=== PATIENT | female | born 1965 | race Asian ===

== ENCOUNTER → 2017-07-10 09:35 | Outpatient (CLI) | payer OTHER, SELFPAY ==
--- NOTE | 2017-07-10 | DI.RAD.S_ITS ---
PROCEDURE: XR LUMBAR SPINE 2-3V INDICATIONS: LUMBAR RADICUOPATHY TECHNIQUE: 3 views of the lumbar spine were acquired. COMPARISON: [facility], , -SPINE 2-3 VIEWS, 01/01/2011, 8:38. FINDINGS: Bones: 5 [id number] vertebrae are present. There is normal bony alignment. No vertebral body compression fractures. No suspicious bony lesions. Soft tissues: Overlying bowel gas pattern is normal. No suspicious soft tissue calcifications. IMPRESSION: No trauma found, source of radiculopathy is not seen. Minimal degenerative changes are seen along the mid and lower lumbosacral spine at the facet joints. Depending on clinical status followup by MR scanning may be warranted if disc herniation and focal nerve root impingement is clinically suspected. Dictated by: Angel Monteiro M.D. on 07/10/2017 at 11:18 Approved by: Angel Monteiro M.D. on 07/10/2017 at 11:19
== END ==
PROVIDERS: Family Provider Family Medicine; PCP Family Medicine; Visit Provider Family Medicine
DX: M54.16 Radiculopathy, lumbar region (principal); M51.37 Other intervertebral disc degeneration, lumbosacral region
CPT/HCPCS: 72100

== ENCOUNTER → 2017-08-21 08:49 | Outpatient (CLI) | payer OTHER, SELFPAY ==
--- NOTE | 2017-08-21 | DI.MG.S_ITS ---
BILATERAL DIGITAL SCREENING MAMMOGRAM 3D/2D WITH CAD: 08/21/2017 CLINICAL: Routine screening. Comparison is made to exams dated: 06/17/2016 mammogram, 06/15/2015 mammogram, and 05/17/2014 mammogram - [facility]. The tissue of both breasts is heterogeneously dense. This may lower the sensitivity of mammography. Current study was also evaluated with a Computer Aided Detection (CAD) system. No significant masses, calcifications, or other findings are seen in either breast. There has been no significant interval change. IMPRESSION: NEGATIVE There is no mammographic evidence of malignancy. A 1 year screening mammogram is recommended. This exam was interpreted at Station ID: [id number]. NOTE: For mammograms, a report in lay terms will be sent to the patient. Approximately 15% of breast malignancies will not be visualized mammographically. In the management of a palpable breast mass, a negative mammogram must not discourage biopsy of a clinically suspicious lesion. Electronically Signed By: Harrison miles/yasmin:08/21/2017 12:59:53 letter sent: Normal Exam ACR BI-RADS Category 1: Negative 3341F
== END ==
PROVIDERS: Family Provider Family Medicine; PCP Family Medicine; Visit Provider Family Medicine
DX: Z12.31 Encounter for screening mammogram for malignant neoplasm of breast (principal)
CPT/HCPCS: 77063; 77067

== ENCOUNTER → 2018-08-07 13:49 | Outpatient (CLI) | payer OTHER, SELFPAY ==
--- NOTE | 2018-08-07 | DI.MG.S_ITS ---
BILATERAL DIGITAL SCREENING MAMMOGRAM 3D/2D WITH CAD: 08/07/2018 CLINICAL: Routine screening. Comparison is made to exams dated: 08/21/2017 mammogram, 06/17/2016 mammogram, 06/15/2015 mammogram, 05/17/2014 mammogram, and 10/30/2012 mammogram - [facility]. The tissue of both breasts is heterogeneously dense. This may lower the sensitivity of mammography. Current study was also evaluated with a Computer Aided Detection (CAD) system. No significant masses, calcifications, or other findings are seen in either breast. There has been no significant interval change. IMPRESSION: NEGATIVE There is no mammographic evidence of malignancy. A 1 year screening mammogram is recommended. This exam was interpreted at Station ID: [id number]. NOTE: For mammograms, a report in lay terms will be sent to the patient. Approximately 15% of breast malignancies will not be visualized mammographically. In the management of a palpable breast mass, a negative mammogram must not discourage biopsy of a clinically suspicious lesion. Electronically Signed By: Castro rico/yasmin:08/07/2018 19:29:08 letter sent: Normal Exam ACR BI-RADS Category 1: Negative 3341F
== END ==
PROVIDERS: Family Provider Family Medicine; PCP Family Medicine; Visit Provider Family Medicine
DX: Z12.31 Encounter for screening mammogram for malignant neoplasm of breast (principal)
CPT/HCPCS: 77063; 77067

== ENCOUNTER → 2018-10-26 10:27 | Outpatient (CLI) | payer OTHER, SELFPAY ==
--- NOTE | 2018-10-26 | DI.RAD.S_ITS ---
PROCEDURE: XR CHEST 2V INDICATIONS: COUGH TECHNIQUE: 2 views of the chest were acquired. COMPARISON: [facility], , CHEST 2 VIEW, 10/31/2016, 12:27. FINDINGS: Surgical changes and devices: Surgical clips project over the right upper quadrant of the abdomen, consistent with prior cholecystectomy. Lungs and pleura: Lungs are clear. No pleural effusions or pneumothorax. There is mild prominence of pulmonary vasculature. Mediastinum: Mediastinal contours are normal. Heart size is normal. Bones and chest wall: No suspicious bony abnormalities. Soft tissues appear unremarkable. IMPRESSION: No acute cardiopulmonary disease identified. Dictated by: Castro Field M.D. on 10/26/2018 at 14:31 Approved by: Castro Field M.D. on 10/26/2018 at 14:49
== END ==
PROVIDERS: PCP Family Medicine; Visit Provider Family Medicine
DX: R05 Cough (principal)
CPT/HCPCS: 71046

== ENCOUNTER 2019-03-26 12:58 | Day surgery (SDC) | payer OTHER, SELFPAY ==
--- NOTE | 2019-03-26 07:55 | P.HP_ITS ---
History of Present Illness History of Present Illness Date Patient Seen: 03/26/19 Time Patient Seen: 14:46 Chief complaint: [id number] SCREENING COLONOSOCPY Narrative: 53 Years Old Female comes in today for consideration of a screening colonoscopy. One previous lifetime colonoscopy on 07/16/2013, indicated for screening, significant for a single polyp at 15 cm, pathology not available at time of dictation, was told to repeat colonoscopy in 5 years. There have been no lower GI symptoms suggesting disease such as change in bowel habits, bleeding, abdominal pain or anemia. There's been no family history of colon cancer or colon polyps. Overall health issues have been stable, including no major cardiac events for at least 6 weeks. Current Medications (verified): 1) Atorvastatin Calcium 20 Mg Oral Tablet (Atorvastatin Calcium) .... Take 1 tablet by mouth daily for cholesterol control. 2) Triamcinolone Acetonide 0.5 % External Cream (Triamcinolone Acetonide (Top)) .... Apply thin film to affected area 3 times a day. Not for use on face. 3) Calcium 500 Mg Oral Tablet (Calcium) .... 1 tablet by mouth each day for osteoporosis prevention. 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 [facility]hold [facility] 12years Meds Home Medications and Allergies Home Medications Medication Instructions Recorded Confirmed Type atorvastatin [Lipitor] 10 mg PO QPM 03/26/19 03/26/19 History Allergies Allergy/AdvReac Type Severity Reaction Status Date / Time No Known Drug Allergies Allergy Verified 03/26/19 13:48 Review of Systems Review of Systems Narrative: General: Denies fever, chills, sweats, loss of appetite, fatigue, weakness, ill feeling, weight change, waking-up tired, fatigued/sleepy during day, snoring, and problem getting to or staying asleep. Eyes: Denies blurring, double vision, irritation/itching, redness, discharge, vision loss, eye pain, and light intolerance. ENT: Denies earache, ear discharge, ringing ears, decreased hearing, nasal congestion, nasal discharge, postnasal drip, nosebleeds, sore throat, hoarseness , itching nose/eyes, and sneezing. CV: Denies chest discomfort, palpitations, lightheadedness, passing out, SOB with exertion, SOB lying flat, PND-sudden nocturnal shortness of breath, and ankle edema. Resp: Denies cough, wheeze, SOB at rest, sputum, coughing up blood, and painful breathing. GI: Denies nausea, vomiting, diarrhea, constipation, change in bowel habits, abdominal pain, dark black stools, blood in stools, gas/bloating, indigestion/heartburn, reflux, loss of appetite, swallowing problems, painful swallowing, and jaundice. : Denies painful urination, blood in urine, frequency, nocturia, incontinence, urgency, hesitancy, vaginal discharge, amenorrhea, abnormally heavy periods, abnormal vaginal bleeding, pelvic pain, painful intercourse, less interested in sex, and genital sores. MS: Denies neck pain, upper back pain, lower back pain, joint pain, joint swelling, joint stiffness, muscle cramps, muscle weakness, pain radiating down leg, restless legs, and leg pain with exertion. Derm: Complains of rash and itching; denies dryness, skin lesions, changing lesions, and non-healing sores. Neuro: Denies weakness of a limb, numbness/tingling, seizure, tremor, dizziness, transient blindness, balance problems, frequent falls, frequent headaches, severe headaches, difficulty speaking, difficulty swallowing, clumsiness, confusion, and memory loss. Psych: Denies sadness/hopelessness, feeling overwhelmed, lack of braulio/pleasure, anxiety/excessive worry, excessive sleep, inadequate sleep, change in appetite, poor concentration, suicidal ideation, hallucinations, paranoia, and phobia. Endo: Denies cold intolerance, heat intolerance, excessive thirst, excessive hunger, excessive urination, and unintentional weight change. Heme: Denies abnormal bruising, bleeding problems, bleeding gums, frequent nosebleeds, and enlarged lymph nodes. Allergy: Denies hives, allergic rash, allergy symptoms, seasonal allergies, food intolerance, animal intolerance, and frequent infections. Breast: Denies left breast lump, right breast lump, breast pain, breast tenderness, erythema, nipple discharge, bloody nipple discharge, abnormal mammogram, breast enlargement, and currently . Exam Vital Signs (past 8 hours): General: Alert and oriented, appearing stated age and in no acute distress. Head: Head normocephalic/atraumatic. Neck: Neck soft and supple, no lymphadenopathy. Lungs: Clear to auscultation bilaterally, no wheezes, rhonchi or rales. Heart: normal rate and regular rhythm, no murmurs, rubs, gallops, or clicks, Abdomen: abdomen soft and non-tender without masses, organomegaly, or abdominal wall hernias, bowel sounds positive. Skin: intact without suspicious lesions or rashes, Psych: alert and cooperative; normal mood and affect; normal attention span and concentration; cognition, remote and recent memory appear to be intact, Assessment & Plan Assessment & Plan narrative: Problem #1. History of colon polyps Problem #2. Screening for colon cancer 1. Colonoscopy The nature and character of the procedure as well as anticipated results were discussed. The possibility of not completing the procedure was also discussed. Possible complications including aspiration pneumonia, bleeding, perforation and reaction to medications either for sedation or preparation and missed lesions were discussed. Questions were answered and proceeding to the colonoscopy was elected. Informed consent signed. I sincerely appreciate the referral allowing me to participate in this patient's care. Please contact me with any questions or concerns.
--- NOTE | 2019-03-26 07:58 | PM.OP.ENDO ---
Operative Date/Time/Diagnoses Date of procedure: 03/26/19 Time of procedure: 14:48 Pre-op diagnosis: 1. History of colon polyps 2. Screening for colon cancer Post-op diagnosis: other (1. Normal colonoscopy, 2. External hemorrhoids) Procedure & Clinicians Study performed: Colonoscopy Same procedure as scheduled: Yes Indications: 1. History of colon polyps 2. Screening for colon cancer Surgeon: Bettina Roland Procedure Notes SCOAP/Timeout: 14:48 Procedure in detail: ENDOSCOPIST: Bettina Roland MD Sedation RN: Guevara Adrian RN Sedation start time: 14:48 Sedation end time: 15:10 PROCEDURE: Colonoscopy INDICATIONS: 1. History of colon polyps 2. Screening for colon cancer MEDICATION: Levsin 0.125 mg sublingual, incremental doses of Versed and fentanyl until appropriate level sedation achieved. ASA CLASS: 2 CECAL WITHDRAWAL TIME: 11 minutes COMPLICATIONS: None. EXTENT OF PROCEDURE: Cecum. QUALITY OF PREP: Good with portions of liquid stool. PROCEDURE: Prior to insertion of the colonoscope, a digital rectal examination was accomplished with circumferential palpation of the distal rectal mucosa without significant findings being noted. The high-definition colonoscope was passed into the rectum in the usual fashion and advanced over to the cecum without difficulty. The ileocecal valve, appendiceal stoma, and medial wall all could be inspected and no abnormalities were seen. ASCENDING COLON: As the colonoscope was withdrawn, care was taken to expose and inspect the haustral folds and no abnormalities were seen. HEPATIC FLEXURE: Normal no polyps, diverticula or other abnormalities. TRANSVERSE COLON: Normal no polyps, diverticula or other abnormalities. DESCENDING COLON: Normal no polyps, diverticula or other abnormalities. SIGMOID COLON: Normal no polyps, diverticula or other abnormalities. RECTUM: Normal. J maneuver was produced. There was no significant perianal disease. The J maneuver was broken. The remainder of the rectum was inspected and there was minor internal hemorrhoid disease. The scope was withdrawn. IMPRESSION: 1. Normal colonoscopy 2. Internal hemorrhoid disease, mild PLAN: 1. Repeat colonoscopy in 10 years The possibility of a missed lesion including a malignancy has been discussed with the patient previously. Potential alarm symptoms have been discussed and should be reported immediately. Scope withdrawal time: 11 Sedation minutes: 38 Findings: internal hemorrhoids Specimen(s): none sent Complications: none Impression: As above. Post-procedure Recommendations: Colonscopy in 10 years Follow up: as needed Disposition: PACU
[2019-03-26 13:46] VITALS: BP 112/74; PULSE 73; RESP 16; TEMP 36.6; O2SAT 99
[2019-03-26] MEDS: HYOSCYAMINE 0.125 MG TABLET PO (13:59)
[2019-03-26] MEDS: SODIUM CHLORIDE 0.9% 1,000 ML 200 ML IV (14:11)
[2019-03-26] MEDS: MIDAZOLAM 5 MG/5 ML VIAL IV (15:12)
[2019-03-26 15:13] VITALS: BP 110/73; PULSE 80; RESP 20; TEMP 36.4; O2SAT 98
[2019-03-26] MEDS: fentaNYL 250 MCG/5 ML INJ IV (15:13)
[2019-03-26 15:18] VITALS: BP 110/71; PULSE 77; RESP 14; O2SAT 98
[2019-03-26 15:25] VITALS: BP 112/68; PULSE 70; RESP 17; O2SAT 97
[2019-03-26 15:30] VITALS: BP 111/78; PULSE 78; RESP 11; TEMP 36.2; O2SAT 97
[2019-03-26 15:50] VITALS: BP 138/83; PULSE 81; RESP 15; TEMP 36.4; O2SAT 96
== END 2019-03-26 16:00 | disposition home or self-care (01) ==
PROVIDERS: PCP Family Medicine; Referring Provider Student in an Organized Health Care Education/Training Program; Visit Provider Student in an Organized Health Care Education/Training Program
PROC: 0DJD8ZZ Inspection of Lower Intestinal Tract, Via Natural or Artificial Opening Endoscopic (ICD-10-PCS; CPT 45378; principal; 2019-03-26 15:00)
DX: Z12.11 Encounter for screening for malignant neoplasm of colon (principal); Z86.010 Personal history of colon polyps; K64.4 Residual hemorrhoidal skin tags
CPT/HCPCS: 45378; J2250; J3010

== ENCOUNTER → 2019-08-18 10:35 | Outpatient (CLI) | payer OTHER, SELFPAY ==
--- NOTE | 2019-08-18 | DI.MG.S_ITS ---
BILATERAL DIGITAL SCREENING MAMMOGRAM 3D/2D WITH CAD: 08/18/2019 CLINICAL: Routine screening. Comparison is made to exams dated: 08/07/2018 mammogram, 08/21/2017 mammogram, 06/17/2016 mammogram, and 06/15/2015 mammogram - [facility]. The tissue of both breasts is heterogeneously dense. This may lower the sensitivity of mammography. Current study was also evaluated with a Computer Aided Detection (CAD) system. There is a stable benign mass in the right breast. No significant new masses, calcifications, or other findings are seen in either breast. There has been no significant interval change. IMPRESSION: There is no mammographic evidence of malignancy. A 1 year screening mammogram is recommended. This exam was interpreted at Station ID: [id number]. NOTE: For mammograms, a report in lay terms will be sent to the patient. Approximately 15% of breast malignancies will not be visualized mammographically. In the management of a palpable breast mass, a negative mammogram must not discourage biopsy of a clinically suspicious lesion. Electronically Signed By: Yo farr/:08/18/2019 11:51:19 letter sent: Normal Exam ACR BI-RADS Category 2: Benign Finding(s) 3342F
== END ==
PROVIDERS: PCP Family Medicine; Referring Provider Family Medicine; Visit Provider Family Medicine
DX: Z12.31 Encounter for screening mammogram for malignant neoplasm of breast (principal)
CPT/HCPCS: 77063; 77067

== ENCOUNTER → 2020-07-28 15:37 | Outpatient (CLI) | payer OTHER, SELFPAY ==
--- NOTE | 2020-07-28 15:39 | DI.US.S_ITS ---
PROCEDURE: US PELVIC COMPLETE INDICATIONS: PELVIC PAIN TECHNIQUE: Real-time scanning was performed of the pelvic organs, with image documentation. Additional endovaginal scanning was necessary due to incomplete visualization of the adnexal and endometrial structures by transabdominal scanning. COMPARISON: None. FINDINGS: The patient could not tolerate endovaginal scanning. The urinary bladder was not well distended and due to this as well as a combination of body habitus and shadowing from multiple scars, the exam quality is quite limited. There is limited visualization of the uterus. No gross evidence of a uterine mass. The ovaries are not identified. There is no obvious free pelvic fluid. IMPRESSION: Highly limited exam with no gross evidence of pathology, however the ovaries are not visualized in the uterus is poorly characterized. Dictated by: Eduar Lowry M.D. on 07/28/2020 at 16:40 Approved by: Eduar Lowry M.D. on 07/28/2020 at 16:41
== END ==
PROVIDERS: PCP Family Medicine; Referring Provider Family Medicine; Visit Provider Family Medicine
DX: R10.2 Pelvic and perineal pain (principal)
CPT/HCPCS: 76856

== ENCOUNTER → 2020-09-08 14:54 | Outpatient (CLI) | payer OTHER, SELFPAY ==
--- NOTE | 2020-09-08 14:56 | DI.MG.S_ITS ---
BILATERAL DIGITAL SCREENING MAMMOGRAM 3D/2D WITH CAD: 09/08/2020 CLINICAL: Routine screening. Comparison is made to exams dated: 08/18/2019 mammogram, 08/07/2018 mammogram, and 08/21/2017 mammogram - [facility]. The tissue of both breasts is heterogeneously dense. This may lower the sensitivity of mammography. Current study was also evaluated with a Computer Aided Detection (CAD) system. There is a possible developing 0.9 cm oval focal asymmetry in the right breast at 8 o'clock posterior depth. This is more prominent and increased in size. No other significant masses, calcifications, or other findings are seen in either breast. IMPRESSION: INCOMPLETE: NEEDS ADDITIONAL IMAGING EVALUATION The possible developing 0.9 cm oval focal asymmetry in the right breast is indeterminate. Additional views with possible ultrasound are recommended. This exam was interpreted at Station ID: [id number]. NOTE: For mammograms, a report in lay terms will be sent to the patient. Approximately 15% of breast malignancies will not be visualized mammographically. In the management of a palpable breast mass, a negative mammogram must not discourage biopsy of a clinically suspicious lesion. Electronically Signed By: Dane Gary M.D. aty/:09/08/2020 15:58:25 letter sent: Additional Imaging Needed ACR BI-RADS Category 0: Incomplete 3340F
== END ==
PROVIDERS: PCP Family Medicine; Referring Provider Family Medicine; Visit Provider Family Medicine
DX: Z12.31 Encounter for screening mammogram for malignant neoplasm of breast (principal); N64.89 Other specified disorders of breast
CPT/HCPCS: 77063; 77067

== ENCOUNTER → 2020-10-02 08:40 | Outpatient (CLI) | payer OTHER, SELFPAY ==
--- NOTE | 2020-10-02 | DI.MG.S_ITS ---
UNILATERAL RIGHT DIGITAL DIAGNOSTIC MAMMOGRAM 3D/2D WITH ADDITIONAL VIEWS: 10/02/2020 CLINICAL: Additional evaluation requested from prior study. Comparison is made to exams dated: 09/08/2020 mammogram, 08/18/2019 mammogram, and 08/07/2018 mammogram - [facility]. The tissue of right breast is heterogeneously dense. This may lower the sensitivity of mammography. There is an oval equal density mass with an obscured and circumscribed margin in the right breast at 9 o'clock middle depth. No other significant masses or calcifications are seen in the breast. IMPRESSION: INCOMPLETE: NEEDS ADDITIONAL IMAGING EVALUATION The oval equal density mass in the right breast is indeterminate. An ultrasound is recommended. Ultrasound will be performed immediately following the current exam. This exam was interpreted at Station ID: [id number]. NOTE: For mammograms, a report in lay terms will be sent to the patient. Approximately 15% of breast malignancies will not be visualized mammographically. In the management of a palpable breast mass, a negative mammogram must not discourage biopsy of a clinically suspicious lesion. Electronically Signed By: Yo Barahona M.D. ddp/:10/02/2020 09:18:18 ACR BI-RADS Category 0: Incomplete 3340F
--- NOTE | 2020-10-02 | DI.US.S_ITS ---
LIMITED ULTRASOUND OF RIGHT BREAST AND AXILLA: 10/02/2020 CLINICAL: Patient returns today to evaluate a focal asymmetry in the right breast. Comparison is made to exams dated: 10/02/2020 mammogram, 09/08/2020 mammogram, 08/18/2019 mammogram, 08/07/2018 mammogram, 08/21/2017 mammogram, and 06/17/2016 mammogram - [facility]. Real-time ultrasound of the right breast axilla was performed on the areas of interest. There is a 0.9 cm x 0.9 cm x 0.7 cm oval mass with a circumscribed margin in the right breast at 9 o'clock middle depth. This oval mass is hypoechoic with internal echoes. This correlates with mammography findings. Color flow imaging demonstrates that there is no vascularity present. No suspicious enlarged lymph nodes were seen sonographically in the axilla. IMPRESSION: SUSPICIOUS OF MALIGNANCY The 0.9 cm x 0.9 cm x 0.7 cm oval mass in the right breast is suspicious of malignancy. An ultrasound guided biopsy is recommended. The findings were discussed with the patient at the conclusion of the study by Dr. Ford. This exam was interpreted at Station ID: [id number]. Electronically Signed By: Yo farr/:10/02/2020 11:00:03 letter sent: Biopsy Required Ultrasound BI-RADS: 4 Suspicious for malignancy
== END ==
PROVIDERS: PCP Family Medicine; Referring Provider Family Medicine; Visit Provider Family Medicine
DX: R92.8 Other abnormal and inconclusive findings on diagnostic imaging of breast (principal); N63.15 Unspecified lump in the right breast, overlapping quadrants
CPT/HCPCS: 76642; 77065; G0279

== ENCOUNTER → 2020-10-25 12:42 | Outpatient (CLI) | payer OTHER, SELFPAY ==
--- NOTE | 2020-10-25 | DI.MG.S_ITS ---
UNILATERAL RIGHT DIGITAL DIAGNOSTIC MAMMOGRAM 3D/2D POST-NEEDLE BIOPSY: 10/25/2020 CLINICAL: Right breast mass. Post clip placement. Comparison is made to exams dated: 10/25/2020 ultrasound biopsy, 10/02/2020 mammogram, 09/08/2020 mammogram, and 08/18/2019 mammogram - [facility]. The tissue of right breast is heterogeneously dense. This may lower the sensitivity of mammography. There is a marker clip in the appropriate position in the right breast at 9 o'clock middle depth. This marker clip placement is at the biopsy site. IMPRESSION: POST PROCEDURE MAMMOGRAM FOR MARKER PLACEMENT There was a successful marker clip placement in the right breast middle depth. This exam was interpreted at Station ID: [id number]. NOTE: For mammograms, a report in lay terms will be sent to the patient. Approximately 15% of breast malignancies will not be visualized mammographically. In the management of a palpable breast mass, a negative mammogram must not discourage biopsy of a clinically suspicious lesion. Electronically Signed By: George ma/:10/25/2020 16:40:21 ACR BI-RADS Category Post-procedure mammogram for marker placement
--- NOTE | 2020-10-25 | DI.US.S_ITS ---
ULTRASOUND GUIDED BIOPSY RIGHT BREAST USING VACUUM DEVICE WITH MARKING DEVICE INSERTED: 10/25/2020 CLINICAL: Patient returns today to evaluate a focal asymmetry in the right breast. PATIENT CONSENT: Risks (minor bleeding, infection, vasovagal reaction and repeat procedure), benefits and alternatives were explained to the patient and written informed consent was obtained. Correlation is made to exams dated: 10/02/2020 ultrasound, 10/02/2020 mammogram, 09/08/2020 mammogram, 08/18/2019 mammogram, 08/07/2018 mammogram, and 08/21/2017 mammogram - [facility]. An ultrasound guided biopsy using real-time ultrasound was performed for the mass located in the right breast at 9 o'clock middle depth. The skin was prepped in the usual manner. Local anesthetic was administered to the access site. A small incision was made in the breast. The abnormality was approached from the lateral aspect. A biopsy needle was placed adjacent to the abnormality under ultrasound guidance. Once the needle was documented to be in the correct location, six specimens were obtained using the Mammotome biopsy system. The patient received additional local anesthetic during the procedure. A clip was inserted into the biopsy cavity. The specimens were sent to the laboratory for pathological analysis. IMPRESSION: ULTRASOUND GUIDED BIOPSY BENIGN Ultrasound guided biopsy of the mass in the right breast at 9 o'clock middle depth was successful. Pathology indicates benign fibrosis and duct dilatation. Pathology results are concordant with imaging findings. Return to annual mammogram screening schedule is recommended. This exam was interpreted at Station ID: [id number]. George ma,acr/:11/01/2020 10:36:24
--- NOTE | 2020-10-25 | PATH_ITS ---
[place] Accession Number: [id number] . 01 Material submitted: . breast - RIGHT BREAST MASS 9:00 5CMFN . 01 Diagnosis: Right Breast Mass, 9 o'clock, 5 cm from the Nipple, Needle Core Biopsy: Nodular hyalinized fibrosis associated with dilated duct. Background fibrocystic changes with associated focal microcalcifications. No atypical duct hyperplasia, in situ or invasive carcinoma. MRV 10/27/2020 1142 Local . 01 Comment: As part of ongoing supervisor vendor quality, this case is also reviewed by Dr. Seda Munoz, who concurs with the given interpretation. . 01 Electronically signed: . Niurka Falk MD, Pathologist NPI- [id number] . 01 Gross description: . Received one formalin-filled container, labeled with the patient's name and labeled RT breast 9 o'clock 5 cm FN. Sample is received with a plastic filter in container, sample loose in container and consists of multiple fragments of light yellow-rodríguez tissue which range in size from 0.1 x 0.1 x 0.1 cm to 1.3 x 0.2 x 0.2 cm. All fragments are totally submitted in one cassette. Possible collection date and time: 10/25/20 at 1330. Total fixation time: Approximately 14 hours. (DC:[id number]) /R 10/26/2020 0244 Local . 01 Pathologist provided ICD-10: N63.10 . 01 CPT . 747250 Performed at: 01 [facility] [address] [place] [address] Suite [facility], [place], [place] [id number] MD Yo Hendrickson MD Phone: [phone]
== END ==
PROVIDERS: PCP Family Medicine; Referring Provider Family Medicine; Visit Provider Family Medicine
DX: N60.31 Fibrosclerosis of right breast (principal); N60.41 Mammary duct ectasia of right breast
CPT/HCPCS: 19083; 77065

== ENCOUNTER → 2021-11-12 08:21 | Outpatient (CLI) | payer OTHER, SELFPAY ==
--- NOTE | 2021-11-12 | DI.MG.S_ITS ---
BILATERAL DIGITAL SCREENING MAMMOGRAM 3D/2D WITH CAD: 11/12/2021 CLINICAL: Routine screening. Comparison is made to exams dated: 09/08/2020 mammogram, 08/18/2019 mammogram, 08/07/2018 mammogram, 10/25/2020 mammogram, and 10/02/2020 mammogram - [facility]. Both breasts are heterogeneously dense, which may obscure small masses (category c / 51-75% glandular tissue). Current study was also evaluated with a Computer Aided Detection (CAD) system. There is a biopsy clip in the right breast. No significant masses, calcifications, or other findings are seen in either breast. There has been no significant interval change. IMPRESSION: NEGATIVE There is no mammographic evidence of malignancy. A 1 year screening mammogram is recommended. Based on the Tyrer Cuzick model (a risk assessment model) the patient's lifetime risk is 9.9% and her 10 year risk is 3.7%. According to the ACR, ACS, and NCCN guidelines, an annual breast MRI exam along with mammogram is recommended if the patient's lifetime risk is 20% or greater. This exam was interpreted at Station ID: [id number]. NOTE: For mammograms, a report in lay terms will be sent to the patient. Approximately 15% of breast malignancies will not be visualized mammographically. In the management of a palpable breast mass, a negative mammogram must not discourage biopsy of a clinically suspicious lesion. Electronically Signed By: Constantino [email or web address]/yasmin:11/12/2021 12:32:05 letter sent: Normal Exam ACR BI-RADS Category 1: Negative 3341F
== END ==
PROVIDERS: PCP Family Medicine; Referring Provider Family Medicine; Visit Provider Family Medicine
DX: Z12.31 Encounter for screening mammogram for malignant neoplasm of breast (principal)
CPT/HCPCS: 77063; 77067

== ENCOUNTER → 2022-06-11 11:26 | Outpatient (CLI) | payer OTHER, SELFPAY ==
--- NOTE | 2022-06-11 | DI.RAD.S_ITS ---
Bone Density Report Name: BAM FERNANDEZ Age: 57 Sex: Female Ethnicity: Date of : 1965 Indication: osteopenia; Referring Provider: FREDI THURMAN Study: Bone densitometry was performed. Exam Date: June 11, 2022 Accession number: [id number] Bone Density: Region BMD T-score Z-score Classification AP Spine(L1-L4) 0.708 -3.1 -1.7 Osteoporosis Femoral Neck (Left) 0.524 -2.9 -1.8 Osteoporosis Total Hip (Left) 0.795 -1.2 -0.3 Osteopenia Femoral Neck (Right) 0.569 -2.5 -1.4 Osteoporosis Total Hip (Right) 0.813 -1.1 -0.2 Osteopenia Total Hip Mean 0.804 -1.2 -0.3 Osteopenia World Health Organization criteria for BMD impression classify patients as: Normal (T-score at or above -1.0), Osteopenia (T-score between -1.0 and -2.5), or Osteoporosis (T-score at or below -2.5). 10-year Fracture Risk: FRAX not reported because: Some T-score for Spine Total or Hip Total or Femoral Neck at or below -2.5 Previous Exams: -- Region Exam Age BMD T-score BMD Change BMD Change Date g/cm2 vs Baseline vs Previous -- AP Spine (L1-L4) 06/11/2022 57 0.708 -3.1 -0.086 (-10.8%)# -0.086 (-10.8%)# 11/27/2012 47 0.794 -2.3 Total Hip(Left) 06/11/2022 57 0.795 -1.2 -0.009 (-1.1%)# -0.009 (-1.1%)# 11/27/2012 47 0.804 -1.1 Total Hip(Right) 06/11/2022 57 0.813 -1.1 -0.021 (-2.6%)# -0.021 (-2.6%)# 11/27/2012 47 0.834 -0.9 -- *Denotes significance at 95% confidence level, LSC for AP Spine = 0.022 g/cm2, LSC for Total Hip = 0.027 g/cm2 # Denotes dissimilar scan types or analysis methods Impression: The patient has osteoporosis, based on the Total Spine T-score. No significant bone loss was observed. Discussion: INCREASED RISK OF FRACTURE. BONE DENSITY IS UNDESIRABLY LOW AT ONE OR MORE SKELETAL SITES, CONSISTENT WITH POSTMENOPAUSAL OSTEOPOROSIS. This patient's lowest T-score meets the World Health Organization's (WHO) criteria for osteoporosis at one or more sites (T-score -2.5 or below). In untreated patients, the risk of osteoporotic fracture increases approximately two-fold for each 1.0 SD decrease in T-score. Low bone density is not the only risk factor for fracture; also consider factors such as patient's age, frailty or poor health, risk of falling, risk of injury, previous osteoporotic fracture, family history of osteoporosis, cigarette smoking, low body weight, etc. Not everyone with low bone mineral density has osteoporosis; osteomalacia and other metabolic bone disorders should also be considered. Patients who have osteoporosis should be evaluated for specific diseases and conditions (secondary causes) that may cause or contribute to bone loss. The [place] [employer]ocr[employer] (AACE) and National Osteoporosis Foundation (NOF) recommend pharmacologic intervention for all postmenopausal women whose T-score is in this range. The patient should follow a healthful lifestyle (good nutrition with adequate calcium and vitamin D, and appropriate weight-bearing exercise). Follow-Up: Consider a repeat BMD and Vertebral Fracture Assessment (VFA) exam in 2 years or sooner if medically necessary, to reassess this patient's status. Reported by: YVONNE ALDRIDGE M.D. on 06/11/2022 11:50:00 AM.
== END ==
PROVIDERS: PCP Family Medicine; Referring Provider Family Medicine; Visit Provider Family Medicine
DX: M81.0 Age-related osteoporosis without current pathological fracture (principal)
CPT/HCPCS: 77080

== ENCOUNTER → 2022-11-13 15:35 | Outpatient (CLI) | payer OTHER, SELFPAY ==
--- NOTE | 2022-11-13 | DI.MG.S_ITS ---
BILATERAL DIGITAL SCREENING MAMMOGRAM 3D/2D WITH CAD: 11/13/2022 CLINICAL: Routine screening. Comparison is made to exams dated: 11/12/2021 mammogram, 09/08/2020 mammogram, and 08/18/2019 mammogram - [facility]. Both breasts are heterogeneously dense, which may obscure small masses (category c / 51-75% glandular tissue). Current study was also evaluated with a Computer Aided Detection (CAD) system. There is a biopsy clip in the right breast. No significant masses, calcifications, or other findings are seen in either breast. There has been no significant interval change. IMPRESSION: NEGATIVE There is no mammographic evidence of malignancy. A 1 year screening mammogram is recommended. Based on the Tyrer Cuzick model (a risk assessment model) the patient's lifetime risk is 9.8% and her 10 year risk is 3.8%. According to the ACR, ACS, and NCCN guidelines, an annual breast MRI exam along with mammogram is recommended if the patient's lifetime risk is 20% or greater. This exam was interpreted at Station ID: [id number]. NOTE: For mammograms, a report in lay terms will be sent to the patient. Approximately 15% of breast malignancies will not be visualized mammographically. In the management of a palpable breast mass, a negative mammogram must not discourage biopsy of a clinically suspicious lesion. Electronically Signed By: Jono [email or web address]/yasmin:11/14/2022 08:43:12 letter sent: Normal Exam ACR BI-RADS Category 1: Negative 3341F
== END ==
PROVIDERS: PCP Family Medicine; Referring Provider Family Medicine; Visit Provider Family Medicine
DX: Z12.31 Encounter for screening mammogram for malignant neoplasm of breast (principal)
CPT/HCPCS: 77063; 77067